=== PATIENT | male | born 1940 | race Caucasian/White ===

== ENCOUNTER 2017-02-22 08:40 | Emergency (ER) | payer OTHER, BC ==
[~2017-02-22] VITALS: Ht 182.9 cm; Wt 85.9 kg
[~2017-02-22 08:40] MED LIST: AUGMENTIN875 MG PO; Ascorbic Acid,Ester- PO; BENADRYL25 MG PO; Cinnamon Bark PO; Ecotrin PO; Glucophage PO; Lipitor PO; Lopid PO; Omega III EPA + DHA PO; PEPCID20 MG PO; PLAVIX75 MG PO; THERAGRAN1 TABLET PO; Zestril,Prinivil PO
[2017-02-22 09:07] LABS: ADD MIUA? YES; BILIRUBIN NEGATIVE; BLOOD SMALL; COLOR YELLOW ((YELLOW)); GLUCOSE (STRIP) >=500; KETONES 5; LEUKOCYTES LARGE; NITRITE NEGATIVE; PROTEIN (STRIP) 100; SPECIFIC GRAVITY 1.013 (1.000-1.030); UROBILINOGEN 0.2 MG/DL (0.2-1.0)
[2017-02-22] MEDS ORDERED: DIOVAN80 MG PO (09:23)
[2017-02-22] MEDS ORDERED: NORVASC5 MG PO (09:23)
[2017-02-22] MEDS ORDERED: ASPIRIN81 M2 PO (09:23)
[2017-02-22] MEDS ORDERED: AVODART0.5 MG PO (09:24)
[2017-02-22] MEDS ORDERED: NEXIUM40 MG PO (09:24)
[2017-02-22] MEDS ORDERED: FLOMAX0.4 MG PO (09:25)
[2017-02-22] MEDS ORDERED: AMARYL2 MG PO (09:25)
[2017-02-22] MEDS ORDERED: ZANTAC150 MG PO (09:25)
[2017-02-22] MEDS ORDERED: JARDIANCE10 MG PO (09:26)
[2017-02-22 09:52] LABS: BACTERIA 2+ /HPF; EPITHELIAL CELLS NONE SEEN /HPF; MUCUS NONE SEEN /LPF; UCUL ADDED? YES; WHITE BLOOD CELLS 40-50 /HPF (0-5)
[2017-02-22 10:33] LABS: EOSINOPHIL (%) 0 % (0-5); HEMATOCRIT 36.9 % (38.0-50.0); IMMATURE GRANULOCYTE (%) 0.5 % (0.0-0.7); IMMATURE GRANULOCYTE COUNT 0.1 K/uL; INSTRUMENT ABS NEUTROPHIL CT 9.3 K/uL; LYMPHOCYTE COUNT 0.9 K/uL (1.0-2.8); MCH 32.1 PG (29.0-34.0); MCHC 34.7 G/DL (30.0-36.0); MCV 92.5 FL (86-99); MEAN PLAT.VOLUME 9.9 uM^3 (9.0-12.4); MONOCYTE (%) 6.6 % (3-12); MONOCYTE COUNT 0.7 K/uL (0-0.8); NEUTROPHIL (%) 84.4 % (45-76); NEUTROPHIL COUNT 9.3 K/uL (1.8-6.4); PLATELET COUNT 166 K/uL (156-360); RBC DIS.WIDTH-CV 13.4 % (11.8-14.6); RBC DIS.WIDTH-SD 45.6 % (39-53); RED BLOOD COUNT 3.99 M/uL (4.00-5.50)
[2017-02-22 10:45] LABS: CHLORIDE 102 mEq/L (99-109); POTASSIUM 3.9 mEq/L (3.7-5.4); SODIUM 136 mEq/L (136-147)
[2017-02-22 10:46] LABS: GLUCOSE 96 mg/dL (70-99)
[2017-02-22 10:48] LABS: ANION GAP 13 MEQ/L (2-14)
[2017-02-22 10:50] LABS: GFR ESTIMATE (CALCULATED) 42 mL/min/ (58.99-99999)
[2017-02-22 10:51] LABS: UREA NITROGEN (BUN) 30 mg/dL (9-23)
[2017-02-22] MEDS ORDERED: LEVAQUIN500 MG PO (12:19)
[2017-02-22 12:50] VITALS: BP 122/67
== END 2017-02-22 12:52 | disposition home or self-care (01) ==
LOC: EME 08:40
PROVIDERS: Emergency Medicine
DX: N39.0 Urinary tract infection, site not specified (principal); N41.9 Inflammatory disease of prostate, unspecified; R51 Headache; K44.9 Diaphragmatic hernia without obstruction or gangrene; K80.20 Calculus of gallbladder without cholecystitis without obstruction; K57.30 Diverticulosis of large intestine without perforation or abscess without bleeding; I10 Essential (primary) hypertension; E11.9 Type 2 diabetes mellitus without complications; Z79.84 Long term (current) use of oral hypoglycemic drugs; Z95.5 Presence of coronary angioplasty implant and graft; Z79.01 Long term (current) use of anticoagulants; Z79.82 Long term (current) use of aspirin; Z87.891 Personal history of nicotine dependence
CPT/HCPCS: 70450; 74176; 80048; 81003; 85025; 87077; 87086; 87186; 99281; 99285; J1956